=== PATIENT | female | born 1985 | race African-American/Black ===

== ENCOUNTER 2016-09-03 07:39 | Emergency (ER) | payer OTHER ==
[~2016-09-03] VITALS: Ht 157.5 cm; Wt 72.6 kg
[2016-09-03 08:58] LABS: PLATELET COUNT 317 K/uL (152-353)
[2016-09-03 09:10] LABS: POTASSIUM 3.5 mmol/L (3.6-5.2); SODIUM 141 mmol/L (136-145)
[2016-09-03 13:35] VITALS: BP 125/80; TEMP 97.9
== END 2016-09-03 13:30 | disposition short-term general hospital (02) ==
LOC: ED 07:39
DX: K35.80 Unspecified acute appendicitis (principal)
CPT/HCPCS: 36415; 80053; 81000; 81025; 85027; 96374; 99284; J1885; Q9963

== ENCOUNTER 2016-09-03 13:32 | Outpatient (CLI) | payer OTHER | END 2016-09-03 14:08 | disposition short-term general hospital (02) | LOC: AMB 13:32 | DX: K35.80 Unspecified acute appendicitis (principal) | CPT/HCPCS: A0425; A0427 ==